=== PATIENT | male | born 1965 | race Two or more races ===

== ENCOUNTER 2021-07-17 22:06 | Inpatient (IN) | payer MEDICAID ==
[~2021-07-17] VITALS: Ht 188 cm; Wt 83.5 kg
--- NOTE | 2021-07-17 22:45 | NUR ---
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 pt aaox4 breathing evenly and unlabored. Pt attached to monitor and pox. MD at bedside for eval. SKin is warm and dry. Pt given blanket and call light within reach
[2021-07-17 23:13] LABS: BASOPHILS % (AUTO) 0.5 % (0.0-2.0); EOSINOPHILS % (AUTO) 0.2 % (0.0-6.0); HEMATOCRIT 35 % (39-51); HEMOGLOBIN 11.7 g/dL (13.5-17.5); LYMPHOCYTES # (AUTO) 1.3 K/uL (0.8-4.8); LYMPHOCYTES % (AUTO) 26.6 % (20.0-44.0); MEAN CORPUSCULAR HGB CONC 33 g/dl (31.0-36.0); MEAN CORPUSCULAR VOLUME 94 fL (80-96); MONOCYTES # (AUTO) 0.4 K/uL (0.1-1.30); MONOCYTES % (AUTO) 7.8 % (2.0-12.0); NEUTROPHILS # (AUTO) 3.1 K/uL (1.8-8.9); NEUTROPHILS % (AUTO) 64.9 % (43.0-81.0); PLATELET COUNT (AUTO) 133 K/uL (150-450); RED BLOOD CELL COUNT(AUTO) 3.73 MIL/uL (4.5-6.0); WHITE BLOOD COUNT (AUTO) 4.7 K/uL (4.3-11.0)
[2021-07-17 23:30] LABS: CALCIUM, SERUM 7.9 mg/dL (8.5-10.1); CARBON DIOXIDE 32 mmol/L (21-32); CHLORIDE 106 mmol/L (98-107); CREATININE 0.7 mg/dL (0.6-1.3); GLUCOSE 111 mg/dL (74-106); POTASSIUM 4.2 mmol/L (3.5-5.1); SODIUM SERUM 143 mmol/L (136-145); UREA NITROGEN, BLOOD 7 mg/dL (7-18)
[2021-07-17 23:42] LABS: ALANINE AMINOTRANSFERASE 42 U/L (12-78); ALBUMIN 3.2 g/dL (3.4-5.0); ALKALINE PHOSPHATASE 305 U/L (46-116); ASPARTATE AMINOTRANSFERASE 106 U/L (15-37); BILIRUBIN,DIRECT 0.3 mg/dL (0.0-0.2); BILIRUBIN,TOTAL 0.4 mg/dL (0.2-1.0)
[2021-07-18] MEDS ORDERED: ASPIRIN 325 MG TABLET PO ONE
[2021-07-18 00:05] LABS: D-DIMER 0.63 mg/L(FEU (0.17-0.50)
[2021-07-18] MEDS ORDERED: ASPIRIN 325 MG TABLET ONE (00:08)
[2021-07-18] MEDS ORDERED: IOHEXOL-350 100 ML VIAL IV ONE (01:30)
[2021-07-18] MEDS ORDERED: IV NS 0.9% 250 ML IV ONE (01:30)
[2021-07-18] MEDS ORDERED: CT SWABBABLE VALVE TRANS SET 1 EA INFUS.SET MC ONE (01:30)
--- NOTE | 2021-07-18 01:36 | NUR ---
TAKEN TO RADIOLOGY
--- NOTE | 2021-07-18 02:27 | NUR ---
lab at bedside
[2021-07-18] MEDS ORDERED: CEFTRIAXONE 1GM BAG (ER ONLY) 1 GM/50 ML PIGGYBACK IV ONE (03:00)
[2021-07-18] MEDS ORDERED: AZITHROMYCIN 500 MG in IV D5W 250 ML IV ONE (03:00)
--- NOTE | 2021-07-18 03:15 | NUR ---
Patient is resting comfortably in bed with eyes closed. Easily aroused. VSS
[2021-07-18] MEDS ORDERED: CEFTRIAXONE 1GM BAG (ER ONLY) 50 ML IV ONE (03:41)
[2021-07-18] MEDS ORDERED: AZITHROMYCIN 500 MG VIAL ONE (03:41)
--- NOTE | 2021-07-18 04:12 | NUR ---
us at bedside
--- NOTE | 2021-07-18 05:46 | NUR ---
Dr. william on Phone with dr. Jaramillo
[2021-07-18] MEDS ORDERED: MAG HYDROX/AL HYDROX/SIMETH 30 ML UDC PO PRN (07:00)
[2021-07-18] MEDS ORDERED: MAGNESIUM HYDROXIDE 30 ML UDC PO PRN (07:00)
[2021-07-18] MEDS ORDERED: Z GUARD REMEDY 2 OZ OINT TP PRN (07:00)
[2021-07-18] MEDS ORDERED: ZOLPIDEM TARTRATE 5 MG TABLET PO PRN (07:00)
[2021-07-18] MEDS ORDERED: ONDANSETRON HCL/PF 4 MG/2 ML VIAL IVP PRN (07:00)
[2021-07-18] MEDS ORDERED: IV NS 0.9% 1,000 ML IV SCH (07:00)
[2021-07-18] MEDS ORDERED: LORAZEPAM INJ 2 MG/ML VIAL IV PRN (07:00)
[2021-07-18] MEDS ORDERED: PHARMACY ADD 1 AMP MVI TO IVF DAILY ONE BAG XX PRN (07:00)
[2021-07-18 07:13] LABS: BASOPHILS % (AUTO) 0.4 % (0.0-2.0); EOSINOPHILS % (AUTO) 0.3 % (0.0-6.0); HEMATOCRIT 32 % (39-51); HEMOGLOBIN 10.6 g/dL (13.5-17.5); LYMPHOCYTES % (AUTO) 22.3 % (20.0-44.0); MEAN CORPUSCULAR HGB CONC 34 g/dl (31.0-36.0); MEAN CORPUSCULAR VOLUME 94 fL (80-96); MONOCYTES # (AUTO) 0.4 K/uL (0.1-1.30); MONOCYTES % (AUTO) 9.2 % (2.0-12.0); NEUTROPHILS # (AUTO) 3.1 K/uL (1.8-8.9); NEUTROPHILS % (AUTO) 67.8 % (43.0-81.0); PLATELET COUNT (AUTO) 111 K/uL (150-450); RED BLOOD CELL COUNT(AUTO) 3.35 MIL/uL (4.5-6.0); WHITE BLOOD COUNT (AUTO) 4.6 K/uL (4.3-11.0)
--- NOTE | 2021-07-18 07:21 | NUR ---
Lab called for COVID results: COVID POSITIVE
--- NOTE | 2021-07-18 07:58 | NUR ---
GOT BED 101
[2021-07-18] MEDS ORDERED: Thiamine 100 MG in IV D5W 50 ML IV SCH (08:00)
[2021-07-18] MEDS ORDERED: Folic acid 1 MG in IV D5W 50 ML IV SCH (08:00)
--- NOTE | 2021-07-18 08:18 | NUR ---
REPORT GIVEN TO NURSE MA
--- NOTE | 2021-07-18 08:48 | NUR ---
THE PATIENT IS TRANSFERED TO ASSIGNED UNIT IN STABLE CONDITION AND PER POLICY.
--- NOTE | 2021-07-18 08:50 | NUR ---
RN NOTE PATIENT RECEIVED VIA RNEY FROM ER, AMBULATED AND TRANSFERRED FROM GURNEY TO BED WITH MINIMAL ASSIST. IV ON LEFT HAND PATENT, WILL CONTINUE TO MONITOR PATIENT.
[2021-07-18] MEDS: MVI ADULT 10ML VIAL = 1AMP 10 ML in IV NS 0.9% 1,000 ML IV PRN ×2 (09:18→21:09)
[2021-07-18 09:52] LABS: CALCIUM, SERUM 7.3 mg/dL (8.5-10.1); CREATININE 0.4 mg/dL (0.6-1.3); MAGNESIUM 2.1 mg/dL (1.8-2.4); PHOSPHORUS 4.4 mg/dL (2.5-4.9); POTASSIUM 3.2 mmol/L (3.5-5.1)
[2021-07-18] MEDS ORDERED: CHLORDIAZEPOXIDE HCL 5 MG CAPSULE PO PRN (10:30)
[2021-07-18] MEDS ORDERED: APIXABAN 2.5 MG TABLET PO SCH (10:30)
[2021-07-18] MEDS: FAMOTIDINE (20 MG) 20 MG TABLET PO SCH (10:54)
[2021-07-18] MEDS: DEXAMETHASONE SOD PHOSPHATE 10 MG/ML VIAL IV SCH (10:54)
[2021-07-18] MEDS: APIXABAN 5 MG TABLET PO SCH ×2 (12:13→17:40)
[2021-07-18 13:00] VITALS: BP 121/77
[2021-07-18 17:00] VITALS: BP 118/77
[2021-07-18] MEDS: IV NS 0.9% 1,000 ML IV PRN (17:50)
--- NOTE | 2021-07-18 19:03 | NUR ---
RN NOTE PATIENT AWAKE ALERT AND ORIENTED X3 ABLE TO VERBALIZE NEEDS, OIN TELE MONITOR SR AT THIS TIME, VTS, WILL CONTINUE TO MONITOR AND ENDORSE TO NOC SHIFT.
--- NOTE | 2021-07-18 19:36 | NUR ---
RN NOTE RECEIVED PATIENT IN BED, AWAKE, ALERT, AND VERBALLY RESPONSIVE. ABLE TO MAKE NEEDS KNOWN. BREATHING EVEN AND UNLABORED. NO SOB NOTED. TOLERATING ROOM AIR. HOB ELEVATED 35 DEGREES. NON-PRODUCTIVE COUGH NOTED. DENIES FEELING NAUSEA. SKIN WARM AND DRY, DENIES PAIN AT THIS TIME. AFEBRILE. NOTED WITH LEFT AC 18G PERIPHERAL IV. PATENT. NO INFILTRATION NOTED. CURRENTLY RUNNING NS AT 100 ML/HR AND MULTIVITAMIN ADULT AT 100 ML/HR. TOLERATING WELL. PATIENT STATES HE DRANK 3 BOTTLES OF ALCOHOL YESTERDAY IN THE MORNING. DENIES CONSTIPATION OR PAIN UPON URINATION. PROVIDED WITH BEDSIDE URINAL. BED LOW, IN LOCKED POSITION. CALL LIGHT WITHIN REACH.
[2021-07-18 21:00] VITALS: BP 148/85
[2021-07-18] MEDS: ACETAMINOPHEN 325 MG TABLET PO PRN (21:16)
--- NOTE | 2021-07-18 21:16 | NUR ---
RN NOTE PATIENT STATES HE HAS A HEADACHE AND IS REQUESTING FOR TYLENOL. DESCRIBES HEADACHE "THROBBING". DENIES FEELING DIZZINESS AND VISUAL DISTURBANCES. LIGHTS DIMMED IN ROOM. ADMINISTERED ACETAMINOPHEN 650 MG PO. WILL CONTINUE TO MONITOR. CALL LIGHT WITHIN REACH.
[2021-07-19 01:00] VITALS: BP 146/92
[2021-07-19 05:00] VITALS: BP 132/83
[2021-07-19] MEDS: IV NS 0.9% 1,000 ML IV PRN ×2 (05:13→15:38)
[2021-07-19 06:35] LABS: BASOPHILS % (AUTO) 0.3 % (0.0-2.0); EOSINOPHILS % (AUTO) 0.2 % (0.0-6.0); HEMATOCRIT 33 % (39-51); HEMOGLOBIN 11.5 g/dL (13.5-17.5); LYMPHOCYTES # (AUTO) 0.7 K/uL (0.8-4.8); LYMPHOCYTES % (AUTO) 10.7 % (20.0-44.0); MEAN CORPUSCULAR HGB CONC 35 g/dl (31.0-36.0); MEAN CORPUSCULAR VOLUME 94 fL (80-96); MONOCYTES # (AUTO) 0.7 K/uL (0.1-1.30); NEUTROPHILS # (AUTO) 5.2 K/uL (1.8-8.9); NEUTROPHILS % (AUTO) 78.8 % (43.0-81.0); PLATELET COUNT (AUTO) 105 K/uL (150-450); RED BLOOD CELL COUNT(AUTO) 3.54 MIL/uL (4.5-6.0); WHITE BLOOD COUNT (AUTO) 6.5 K/uL (4.3-11.0)
--- NOTE | 2021-07-19 06:54 | NUR ---
RN NOTE PHONED PHARMACY TO FOLLOW UP ON PATIENTS NEXT MULTIVITAMIN IV MEDICATION BAG. SPOKE TO [facility]. PER [facility], IV MEDICATION WILL BE D/C AND REPLACED WITH BY MOUTH FORM. PATIENT CURRENTLY ON IV NS @ 100 ML/HR ON LEFT AC 18G. NO INFILTRATION NOTED. CALL LIGHT WITHIN REACH OF PATIENT. CHARGE NURSE MADE AWARE. WILL ENDORSE ACCORDINGLY TO NEXT SHIFT.
--- NOTE | 2021-07-19 07:30 | NUR ---
CASH POSTER OPENING NOTE RECEIVED PT AWAKE ALERT IN SEMI-FOWLERS POSITION RESTING COMFORTABLY WITH NO S/SX OF ACUTE RESPIRATORY DISTRESS OR PAIN. PT HAS A L AC 18G RUNNING NS @100ML/HR. SAFETY MEASURES IN PLACE WITH BED IN LOWEST LOCKED POSITION, CALL LIGHT WITHIN REACH
[2021-07-19 08:00] VITALS: BP 142/88
[2021-07-19] MEDS: MULTIVITAMINS,THERAGRAN 1 UDTAB TABLET PO SCH (08:17)
[2021-07-19] MEDS: FOLIC ACID 1 MG TABLET PO SCH (08:17)
[2021-07-19] MEDS: THIAMINE HCL 100 MG TABLET PO SCH (08:17)
[2021-07-19] MEDS: FAMOTIDINE (20 MG) 20 MG TABLET PO SCH (08:17)
[2021-07-19] MEDS: ACETAMINOPHEN 325 MG TABLET PO PRN (08:18)
[2021-07-19] MEDS: APIXABAN 5 MG TABLET PO SCH ×2 (08:18→16:49)
[2021-07-19] MEDS: DEXAMETHASONE SOD PHOSPHATE 10 MG/ML VIAL IV SCH (08:19)
[2021-07-19 12:00] VITALS: BP 144/83
--- NOTE | 2021-07-19 14:23 | NUR ---
SS Consult: SS consult requested for homelessness & ETOH abuse.The pt. is a 56 year old male in RAJESH for chest pain and COVID positive. SW spoke interviewed pt. over the phone. Pt. states he had his first COVID vaccine recently and began to have symptoms of chest pain etc. The pt. is A&O X 4 has good insight & good judgement. Pt.'s has circumstantial thought process and speech is WNL. Pt. denies current SI/HI and denies any hallucinations. SW explored pt.'s living situation. Pt. states he has been "living on the street" for the past3 months since his girlfriend had to move. Per pt. he was living with girlfriend before. SW discussed DC plan and offered usp placement if COVID negative by DC date. Pt. refused usp. STANLEY explored pt.'s drug & alcohol intake as pt.'s blood alcohol level was elevated upon admission. Pt. state he was anxious due to homeless situation and was drinking excessively the 3 days prior to admission. Pt. stated he was drinking about 4 24 oz beers per day. SW offered alcohol rehabilitation referral. Pt. refused. STANLEY explored pt.'s support system. Pt. states he has a sister and 2 nephews who live in the area and he can go there to eat and shower but cannot stay there as the mechanical project manager is very strict. STANLEY explored pt.'s financial situation. Pt. states he works off jobs to have some income and received [employer]. Plan: Pt. stated that he has clothing, backpack and sleeping back and he will go back to "living on the street" upon DC. STANLEY will place homeless waiver and homeless resources in pt.'s chart to be given to him upon DC. Per charge nurse, Soon there is no DC date as of yet. Year-round shelters: [facility] [place] [address] [place], [place] [id number] ; [facility] [place] [address] [place] [address]; [facility] [address] [facility] [address] Winter Shelters: [facility] Provider: [facility] [place] Address: [address] [place], [address] # of Beds: 47 Population Served: [facility] SPA 6 | [facility] Mily Dumas [place] Provider: [facility] Address: [address] [place] [address], [address] # of Beds: 66 Population Served: [facility] Anirudh [place] Provider: [facility] Address: [address] [facility], [address] # of Beds: 56 Population Served: [facility] [place] Provider: [facility] Address: [address] [facility], [address] # of Beds: 49 Population Served: [facility] SPA 8 | [place] Provider: [facility] Address: [address] [place], [address] # of Beds: 37 Population Served: [facility] Hygiene: [facility] [address] [facility] ; [facility] [address] [facility] ; [facility] [address] [facility] . Food Resources: [place] [facility] at [facility]- [address] [facility]; Meet Each Need with Dignity ([facility]) [address] [facility] [place]; [facility] Food Pantry [address]99 [facility]; [facility] 8514 [facility]. Mental Health resources provided: [facility] [address] [place] [address] ; [facility] [address] [facility] [address], [place] [address] ; [facility] [address] [place] [address] ; [facility] [address] [place], [place] [phone] Healthcare Clinics: [facility] [address] [facility], [address] [place]. [place] ; [facility] [address] [facility] [address]; [facility] [address] [facility] [phone]) [phone] Counseling--Outpatient [facility] [address], [place] [address] (Specializes in in-depth psychotherapy for emotional distress: anxiety, depression, interpersonal conflicts, life transitions, childhood abuse) [facility] [address] [place] [address] (Assist with solving problem marital difficulties, separation & divorce, aging parents, & grief, chronic & terminal illness) [facility] [address] [place] [address] (Deal with loss & grief, anxiety, marital difficulties) Homebound/Mental Health Services [address] [facility] [address] [place] [address] (Provide in-home mental services to people who are incapable of leaving their homes) [facility] for Needs of the Elderly Senior Service/Resource Center [address] [facility] [place] [address] [facility] [address] [facility] [place] [address] PSYCHIATRIC OUTPATIENT SERVICES [facility] Partial Hospitalization and Intensive Outpatient Program (Managed Care and [place] Only)[address] [facility]. [facility] [phone] [facility] Partial Hospitalization and Outpatient Ihntahu[address] [facility] [address] [place], [place] [phone] [facility] Mental Health Center Ece[address] [facility] [address] [place], [place] [phone] [facility] Partial Hospitalization and Outpatient [id number] [place], [phone] Substance Abuse resources provided included: [facility] Substance Abuse Self-Helpline ([facility]) ; [facility]LP [address] [facility]. [place] [address] ; [facility] [address] [facility] [address] ; [facility] Rehabilitation [facility] [address] [facility] [phone] ; [facility] [address] [facility] [phone] ; [facility] 132[address] [facility] [address] ; [facility] 907 [facility] [phone] ; [facility] Substance Abuse Helpline([facility] ; [facility] Family Counseling ; [facility]; [facility]; [facility] [place]; [facility] [place]; [facility] [place]; [facility] [place]; [facility]; [facility] [place]; Alcoholics Anonymous -SFV; Sd-Pekg-Szycxdj ; Marijuana Anonymous -[facility]; Narcotics Anonymous www.na.org;
[2021-07-19 16:00] VITALS: BP 140/82
--- NOTE | 2021-07-19 18:42 | NUR ---
DIRECTOR DIETETICS DEPARTMENT CLOSING NOTES NO NOTABLE CHANGES DURING SHIFT. NO COMPLAINTS OF CHEST PAIN AT THIS TIME, PT HAS NSR 86. PT HAS A L AC 18G RUNNING NS @100ML/HR. SAFETY MEASURES IN PLACE WITH BED IN LOWEST LOCKED POSITION, CALL LIGHT WITHIN REACH AND ALL NEEDS ATTENDED AT THIS TIME.
--- NOTE | 2021-07-19 19:00 | NUR ---
RN OPENING NOTES RECEIVED REPORT FROM MORNING NURSE. PATIENT A/0X4. NO SOB, NO DISTRESS. ON RA WITH 98% SATURATION. WITH IV ACCESS ON L AC G#18 PATENT FLUSHES WELL, NO INFILTRATION NOTED. WITH ONGOING IVF OF PNS @ 100 ML/HR. ALL SAFETY MEASURE IN PLACE, HOB ELEVATED, CALL LIGHT WITHIN REACH. WILL CONTINUE TO MONITOR.
[2021-07-19 20:00] VITALS: BP 143/85
[2021-07-20] VITALS: BP 136/83
[2021-07-20] MEDS: IV NS 0.9% 1,000 ML IV PRN (01:34)
[2021-07-20 04:00] VITALS: BP 132/77
--- NOTE | 2021-07-20 06:35 | NUR ---
RN CLOSING NOTES PATIENT REMAINS STABLE THE WHOLE SHIFT NO SOB, NO DISTRESS NO PAIN NOTED. STILL WITH ONGOING IVF OF PNS @100CC/HR. ALL SAFETY MEASURES IN PLACE. HOB ELEVATED. BED ON LOWEST POSITION AND LOCKED. CALL LIGHT WITHIN REACH. ALL NEEDS ATTENDED ENDORSED.
[2021-07-20 06:51] LABS: ALBUMIN 2.8 g/dL (3.4-5.0); BASOPHILS % (AUTO) 0.3 % (0.0-2.0); BILIRUBIN,DIRECT 0.5 mg/dL (0.0-0.2); BILIRUBIN,TOTAL 1.2 mg/dL (0.2-1.0); CALCIUM, SERUM 7.9 mg/dL (8.5-10.1); CREATININE 0.6 mg/dL (0.6-1.3); EOSINOPHILS % (AUTO) 0.3 % (0.0-6.0); HEMATOCRIT 34 % (39-51); HEMOGLOBIN 11.4 g/dL (13.5-17.5); LYMPHOCYTES # (AUTO) 1.1 K/uL (0.8-4.8); LYMPHOCYTES % (AUTO) 15.4 % (20.0-44.0); MEAN CORPUSCULAR HGB CONC 33 g/dl (31.0-36.0); MEAN CORPUSCULAR VOLUME 94 fL (80-96); MONOCYTES # (AUTO) 0.6 K/uL (0.1-1.30); MONOCYTES % (AUTO) 8.5 % (2.0-12.0); NEUTROPHILS # (AUTO) 5.4 K/uL (1.8-8.9); NEUTROPHILS % (AUTO) 75.5 % (43.0-81.0); PLATELET COUNT (AUTO) 115 K/uL (150-450); POTASSIUM 3.2 mmol/L (3.5-5.1); RED BLOOD CELL COUNT(AUTO) 3.63 MIL/uL (4.5-6.0); WHITE BLOOD COUNT (AUTO) 7.1 K/uL (4.3-11.0)
[2021-07-20] MEDS ORDERED: POTASSIUM CHLORIDE 20 MEQ TAB.PRT.SR PO ONE (07:30)
--- NOTE | 2021-07-20 07:30 | NUR ---
RN OPENING NOTES RECEIVED PATIENT IN BED, AWAKE, A/0X4. NO SOB, NO DISTRESS. ON RA SATURATING WELL. WITH IV ACCESS ON L AC G#18 PATENT FLUSHES WELL, NO INFILTRATION NOTED. WITH ONGOING IVF OF NS @ 100 ML/HR. IN NO ACUTE DISTRESS NOTED. SAFETY MEASURE IN PLACE, HOB ELEVATED, CALL LIGHT WITHIN REACH, SIDE RAILS UP X 2, BED ON LOWEST LOCKED POSITION. WILL CONTINUE TO MONITOR ACCORDINGLY.
[2021-07-20 08:00] VITALS: BP 138/85
[2021-07-20] MEDS ORDERED: PRED50TA PO (08:48)
[2021-07-20] MEDS ORDERED: APIX5TAB PO (08:48)
[2021-07-20] MEDS: DEXAMETHASONE SOD PHOSPHATE 10 MG/ML VIAL IV SCH (08:52)
[2021-07-20] MEDS: MULTIVITAMINS,THERAGRAN 1 UDTAB TABLET PO SCH (08:52)
[2021-07-20] MEDS: APIXABAN 5 MG TABLET PO SCH (08:54)
[2021-07-20] MEDS: FAMOTIDINE (20 MG) 20 MG TABLET PO SCH (08:55)
[2021-07-20] MEDS: FOLIC ACID 1 MG TABLET PO SCH (08:55)
[2021-07-20] MEDS: THIAMINE HCL 100 MG TABLET PO SCH (08:55)
--- NOTE | 2021-07-20 10:00 | NUR ---
RN NOTES PATIENT ENDORSED TO DAGOBERTO GARG FOR MIA
--- NOTE | 2021-07-20 10:36 | NUR ---
patient agreed to stay in quarantine hotel,cm notified,will work on it.
--- NOTE | 2021-07-20 10:39 | NUR ---
DC Planning: STANLEY called [facility] [phone] was placed on long hold. STANLEY left number and will be called back when an agent has become available. STANLEY will follow up as needed.
--- NOTE | 2021-07-20 11:15 | NUR ---
DC Plan update: SW received call back from [facility] [phone]. They notified SW that [facility] is being immobilized. However, they asked that pt. call them directly for possible Hotel placement. STANLEY provided intake number to pt. and he stated he would call. STANLEY requested pt. update SW about placement. Pt. is agreeable.
--- NOTE | 2021-07-20 15:05 | NUR ---
STANLEY explored discharge options for positive COVID pt. SW contact [facility] [[phone]], but the hotel is currently booked and have no rooms for COVID pts. Per pt., he spoke with his sister [Alvina [phone]] and she denied his request to stay at her house. Pt. reported that he does not want to stay at hospital. Per pt., he wants to leave and be on the streets. STANLEY provided pt. with education on COVID-19 and convince pt. to stay until SW finds a place for him, but pt. refuse. Pt. reported that he does not want to go to shelters. STANLEY provided pt. with Homeless resources for his own safety. Pt. was willing to sign Homeless Waiver and STANLEY witnessed. STANLEY and MADISON spoke with nurse Ferreira regarding pt.s discharge. Nurse Ferreira witnessed him signing the AMA. Pt. will be discharged today back to the streets.
--- NOTE | 2021-07-20 15:16 | NUR ---
piano case maker winnie and psychiatric social worker supervisor explained to patient need to wait for quarantine hotel,patient refused cannot wait for hotel and wanted to leave,signed ama and ,education for self quaratine provided to patient and n95 mask provided.
== END 2021-07-20 14:45 | disposition left against medical advice (07) | DRG 137 ==
LOC: ER 22:21 → EDBD 22:21 → TELE1 07-18 08:29 → MEDSG1 07-20 08:04
PROVIDERS: ADMIT Internal Medicine; ATTEND Internal Medicine
DX: U07.1 COVID-19 (principal); J12.82 Pneumonia due to coronavirus disease 2019; E43 Unspecified severe protein-calorie malnutrition; D69.6 Thrombocytopenia, unspecified; E88.09 Other disorders of plasma-protein metabolism, not elsewhere classified; K74.60 Unspecified cirrhosis of liver; I51.4 Myocarditis, unspecified; E87.6 Hypokalemia; F10.129 Alcohol abuse with intoxication, unspecified; F41.9 Anxiety disorder, unspecified; K21.9 Gastro-esophageal reflux disease without esophagitis; Z59.00 Homelessness unspecified; Z68.28 Body mass index [BMI] 28.0-28.9, adult; Y90.8 Blood alcohol level of 240 mg/100 ml or more; J40 Bronchitis, not specified as acute or chronic; J47.9 Bronchiectasis, uncomplicated; K76.0 Fatty (change of) liver, not elsewhere classified; K80.20 Calculus of gallbladder without cholecystitis without obstruction; D64.9 Anemia, unspecified; K82.8 Other specified diseases of gallbladder; F32.9 Major depressive disorder, single episode, unspecified
CPT/HCPCS: 36415; 71045-TC; 76705-TC; 80048-TC; 80061-TC; 80076-TC; 83605-TC; 83735-TC; 83880; 84100-TC; 84484-TC; 85025-TC; 85378-TC; 85730-TC; 86140-TC; 87040-TC; 87081-TC; 93307-TC; C9803; G0378; G0480; J0456; J0696; J1100; J3411; J3490; J7030; J7050; J7060; Q9967; U0003